=== PATIENT | female | born 1965 | race Caucasian/White ===

== ENCOUNTER → 2020-08-27 | Outpatient (CLI) | payer OTHER ==
--- NOTE | 2020-08-27 16:13 | XR ---
EXAMINATION TYPE: XR lumbosacral spine min 4V DATE OF EXAM: 08/27/2020 COMPARISON: None HISTORY: Low back pain TECHNIQUE: 5 view lumbar spine FINDINGS: Degenerative disc changes present L4-5 and L5-S1. Some posterior disc space narrowing may b e present L3-4. Vertebral body heights are preserved. Alignment is preserved. No spondylolytic defect s are evident. Facets are normal. There are 5 lumbar-type vertebral bodies. The pedicles are intact. IMPRESSION: 1. Mild degenerative disc change L3-4 through L5-S1
== END | disposition home or self-care (01) ==
LOC: RADXRYALE 15:51
PROVIDERS: ATTEND Family Medicine
DX: M47.817 Spondylosis without myelopathy or radiculopathy, lumbosacral region (principal); M47.816 Spondylosis without myelopathy or radiculopathy, lumbar region
CPT/HCPCS: 72110

== ENCOUNTER → 2021-08-11 | Outpatient (CLI) | payer OTHER ==
--- NOTE | 2021-08-12 13:33 | CA ---
Exercise Stress Test Report Name: Elma Ruvalcaba Exam Date: 08/11/2021 09:05 Exam Location: [facility] Ht (in): 62 Wt (lb): 170 BSA: 1.78 Ordering Phys: Ed Boyer DO Referring Phys: tonie,, Technologist: Dayton Lema Age: 56 Gender: F : 1965 Procedure CPT: Indications: z82.49 ICD-10 Codes: Patient History: Hypertension, Diabetes, Family history of heart diaease Medications: Jenuvia, Jardiance, Lorsartan, atorvastatin Meds past 24 hrs: Pretest Chest Pain: STRESS TEST [place] Protocol Exercise Duration (min:sec): 08:[address] Depressions (mm): Angina Score: Narayanan Score: Resting HR (bpm): 67 Peak HR (bpm): 147 Resting BP (mmHg): 154 / 73 Peak BP (mmHg): 219 / 83 MPHR: 163 Target HR: 139 % MPHR: 90 METS: 10.3 Total Dose: Peak Dose: Atropine: Double Product: 17782 BP Response: Stress Termination: fitgue and heart rate acheived Stress Symptoms: No chest pain or symptoms Stress Summary: ECG ANALYSIS Resting ECG: Stress ECG: CONCLUSIONS Excellent exercise tolerance Normal EKG in response to exercise Dr. Brannon Wiggins MD (Electronically Signed) Final Date: 12 Aug 2021 13:33
== END | disposition home or self-care (01) ==
LOC: RADNMMAIN 08:32
PROVIDERS: ATTEND Family Medicine
DX: I73.9 Peripheral vascular disease, unspecified (principal)
CPT/HCPCS: 93017

== ENCOUNTER → 2021-08-11 | Outpatient (CLI) | payer OTHER ==
--- NOTE | 2021-08-11 19:07 | US ---
EXAMINATION TYPE: US carotid duplex BILAT DATE OF EXAM: 08/11/2021 COMPARISON: NONE CLINICAL HISTORY: Hypertension, hyperlipidemia, dizziness, giddiness. Hypertension, hyperlipidemia. D iabetes. EXAM MEASUREMENTS: RIGHT: Peak Systolic Velocity (PSV) cm/sec ----- Right CCA: 95.2 ----- Right ICA: 116.0 ----- Right ECA: 166.8 ICA/CCA ratio: 1.2 RIGHT: End Diastole cm/sec ----- Right CCA: 23.7 ----- Right ICA: 35.7 ----- Right ECA: 17.0 LEFT: Peak Systolic Velocity (PSV) cm/sec ----- Left CCA: 89.7 ----- Left ICA: 93.0 ----- Left ECA: 114.7 ICA/CCA ratio: 1.0 LEFT: End Diastole cm/sec ----- Left CCA: 25.9 ----- Left ICA: 25.9 ----- Left ECA: 16.3 VERTEBRALS (direction of flow): Right Vertebral: Antegrade Left Vertebral: Antegrade Rhythm: Normal Intimal thickening seen bilaterally. Elevated velocity within right ECA. Plaque seen right ICA, right bulb, and left bulb. Grayscale images show mild peripheral plaque bilateral carotid bulb level. IMPRESSION: No hemodynamically significant stenosis in either internal carotid artery. Criteria for Assigning % of Stenosis / Diameter reduction (Estimation based on the indirect measurements of the internal carotid artery velocities (ICA PSV). 1. Normal (no stenosis)=ICA PSV < 125 cm/s: ratio < 2.0: ICA EDV<40 cm/s. 2. Less than 50% stenosis=ICA PSV < 125 cm/s: ratio < 2.0: ICA EDV<40 cm/s. 3. 50 to 69% stenosis=ICA PSV of 125 to 230 cm/s: ration 2.0 ? 4.0: ICA EDV 40-100 cm/s. 4. Greater than 70% stenosis to near occlusion= ICA PSV > 230 cm/s: ratio > 4.0: ICA EDV > 100 cm/s. 5. Near occlusion= ICA PSV velocities may be low or undetectable: variable ratio and ICA EDV. 6. Total occlusion=unable to detect flow.
== END | disposition home or self-care (01) ==
LOC: RADUSWWP 09:43
PROVIDERS: ATTEND Family Medicine
DX: I10 Essential (primary) hypertension (principal); I73.9 Peripheral vascular disease, unspecified; E78.2 Mixed hyperlipidemia; E11.65 Type 2 diabetes mellitus with hyperglycemia
CPT/HCPCS: 93880; 93922

== ENCOUNTER → 2023-03-27 | Outpatient (CLI) | payer BC, OTHER ==
--- NOTE | 2023-03-27 18:14 | MM ---
Reason for Exam: Screening (asymptomatic). Patient History: Menarche at age 9. Patient has no children. Postmenopausal. Risk Values: Maryann 5 year model risk: 1.7%. NCI Lifetime model risk: 9.1%. Tissue Density: There are scattered fibroglandular densities. Findings: Analyzed By CAD. Outer asymmetric density left cc view anterior depth incompletely disperses on 3-D images. This may represent superimposition shadow but further evaluation is recommended. No suspicious calcification or other discrete abnormality is seen. Overall Assessment: Incomplete: need additional imaging evaluation, BI-RAD 0 Management: Special View Mammogram of the left breast. Diagnostic Breast Ultrasound of the left breast. Additional views left breast to include spot 3-D CC, 3-D CC rolled, spot 3-D MLO, and 3-D ML views. Targeted left breast ultrasound if any persisting abnormality. [facility] will attempt to contact patient to return for supplemental views and ultrasound if indicated. Electronically signed and approved by: Joelle Causey M.D. Radiologist
--- NOTE | 2023-03-28 20:17 | BD ---
EXAMINATION TYPE: Axial Bone Density DATE OF EXAM: 03/27/2023 CLINICAL HISTORY: 58 years old Female. ICD-10 CODE: M85.80 OT DISRD OF BONE DENSITY Height: 62 Weight: 168 FRAX RISK QUESTIONS: Secondary Osteoporosis: yes 3. Menopause before 45: yes RISK FACTORS HISTORY OF: Postmenopausal woman: yes at 44 yrs Take estrogen and/or progesterone medications: past for 4 yrs Hyperparathyroidism: no Adrenal Insufficiency: no MEDICATIONS: Additional Medications: bp meds, diabetic meds, jardiance, jenuvia, statin for cholesterol, vit d Additional History: hypertension, diabetic, cholesterol, EXAM MEASUREMENTS: Bone mineral densitometry was performed using the Corthera System. Bone mineral density as measured about the Lumbar spine is: ----- L1-L4(G/cm2): 1.360 T Score Values are as follows: ----- L1: 0.3 ----- L2: 0.0 ----- L3: 1.4 ----- L4: 3.9 ----- L1-L4: 1.5 Z Score Values are as follows: ----- L1: 1.0 ----- L2: 0.8 ----- L3: 2.1 ----- L4: 4.6 ----- L1-L4: 2.3 Bone mineral density is a baseline study today. Bone mineral density about the R hip (g/cm2): 0.940 Bone mineral density about the L hip (g/cm2): 1.015 T Score values are as follows: -----R Neck: -1.6 -----L Neck: -1.2 -----R Total: -0.5 -----L Total: 0.1 Z Score values are as follows: -----R Neck: -0.7 -----L Neck: -0.2 -----R Total: 0.1 -----L Total: 0.7 Bone mineral density baseline study today. FRAX%s: The graph provided illustrates a 7.9% chance for a major osteoporotic fx and a 0.7% chance fo r the hips probability for fx in 10 years time. IMPRESSION: Osteopenia (T Score between -2.5 and -1). There is slightly increased risk of fracture and the patient may be considered for treatment. Re-Screen 2-5 years. NOTE: T-SCORE=SD OF THE YOUNG ADULT MEAN.
== END | disposition home or self-care (01) ==
LOC: RADMAMWWP 08:35
PROVIDERS: ATTEND Family Medicine
DX: Z12.31 Encounter for screening mammogram for malignant neoplasm of breast (principal); M85.89 Other specified disorders of bone density and structure, multiple sites; Z78.0 Asymptomatic menopausal state
CPT/HCPCS: 77063; 77067; 77080

== ENCOUNTER → 2023-04-04 | Outpatient (CLI) | payer BC, OTHER ==
--- NOTE | 2023-04-04 09:02 | MM ---
Reason for Exam: Additional evaluation requested from abnormal screening. Last screening mammogram was performed less than 1 month ago. Patient History: Menarche at age 9. Patient has no children. Postmenopausal. Risk Values: Maryann 5 year model risk: 1.7%. NCI Lifetime model risk: 9.1%. Prior Study Comparison: 03/27/2023 Bilateral MG 3D screening mammo w/cad, [facility]. Tissue Density: Left: There are scattered fibroglandular densities. Findings: Analyzed By CAD. Nodular area of asymmetric density outer aspect of the left breast anterior depth does not persist on additional views. Findings compatible with superimposition shadow. Overall Assessment: Benign, BI-RAD 2 Management: Screening Mammogram of both breasts in 1 year. . Results were given to the patient verbally at the time of exam. Patient should continue monthly self-breast exams. A clinical breast exam by your physician is recommended on an annual basis. This exam should not preclude additional follow-up of suspicious palpable abnormalities. Note on Maryann scores and lifetime risk: 1. A Maryann score greater than 3% is considered moderate risk. If this is the case, consider specialist referral to assess eligibility for a risk reducing agent. 2. If overall lifetime risk for the development of breast cancer is 20% or higher, the patient may qualify for future screening with alternating mammogram and breast MRI. Electronically signed and approved by: Joelle Causey M.D. Radiologist
== END | disposition home or self-care (01) ==
LOC: RADMAMWWP 08:18
PROVIDERS: ATTEND Family Medicine
DX: R92.322 Mammographic fibroglandular density, left breast (principal); Z78.0 Asymptomatic menopausal state
CPT/HCPCS: 77061; 77065

== ENCOUNTER → 2024-03-10 | Outpatient (CLI) | payer BC, OTHER ==
--- NOTE | 2024-03-10 12:25 | CT ---
INDICATION: Patient age:Female; 59 years old; Reason for study: H93.13 tinnitus; PHH. COMPARISON: None TECHNIQUE: Multiple thin slice images were obtained through the orbits. Coronal and sagittal reforma ts were performed. No contrast given. One or more CT dose reduction strategies were utilized during this examination. Total DLP 468 mGycm. FINDINGS: The globes have a normal contour. Bilateral aphakia. Orbital lentz appear intact. The orbital fat is unremarkable. Extraocular muscles are within normal limits. Vascular sclerosis is noted to the internal carotid arteries. The osseous structures are unremarkabl e. Mild mucosal thickening of the right maxillary sinus with irregular opacity within the right maxillar y sinus measuring up to 1.3 cm with central dystrophic calcification (series 6, image 19). Minimal mu cosal thickening of the left maxillary sinus. The remaining paranasal sinuses are clear. Nasal septal deviation to the left. Cerumen identified within the right external auditory canal. The left external auditory canal is rela tively clear. The internal auditory canals appear unremarkable. The middle ears appear unremarkable b ilaterally with Prussak spaces preserved with the ossicles demonstrate symmetric appearance bilateral ly. IMPRESSION: 1. No evidence of orbital irregularity or mass. 2. No CT evidence to explain patient's reported tinnitus. 3. Somewhat irregular opacity within the right maxillary sinus with central calcification. Probably represents sequelae of chronic sinusitis. Consider ENT consultation. [facility], , 03/10/2024 12:23 PM
== END | disposition home or self-care (01) ==
LOC: RADCTMAIN 07:09
PROVIDERS: ATTEND Family Medicine
DX: H93.13 Tinnitus, bilateral (principal)
CPT/HCPCS: 70480

== ENCOUNTER → 2024-09-13 | Outpatient (CLI) | payer BC, OTHER ==
--- NOTE | 2024-09-16 18:09 | MR ---
EXAMINATION TYPE: MR shoulder RT wo con DATE OF EXAM: 09/13/2024 9:01 AM COMPARISON: None. CLINICAL INDICATION: Female, 59 years old with history of M25.511 PAIN IN R SHOULDER S46.001 UNSP INJ MUSC/T, Rt shoulder pain x1 year IV Contrast: cc (None if empty) TECHNIQUE: Multiplanar, multisequence imaging of the right shoulder is performed without contrast. FINDINGS: There is mild osteoarthritis of the AC joint. There is a small to moderate subacromial spur resulting in mild shoulder impingement. There is mild tendinosis of the supraspinatus tendon and possibly a small intrasubstance tear just un gilberto the superior surface. The infraspinatus and subscapularis tendons are intact. Biceps tendon is normal in signal intensity and position within the bicipital groove and the biceps a nchor is intact. There is no labral tear. There is mild subacromial and subdeltoid bursitis. The glenohumeral joint is intact without significant degeneration. IMPRESSION: 1. Mild degeneration of the AC joint and subacromial spur resulting in mild shoulder impingement. 2. Mild tendinosis of the supraspinatus tendon with a possible small intrasubstance tear as described above. 3. No labral tear. 4. Normal biceps tendon. 5. Mild subacromial and subdeltoid bursitis. [facility], , 09/16/2024 6:07 PM
== END | disposition home or self-care (01) ==
LOC: RADMRIMAIN 08:21
PROVIDERS: ATTEND Family Medicine
DX: S46.001A Unspecified injury of muscle(s) and tendon(s) of the rotator cuff of right shoulder, initial encounter (principal); M25.811 Other specified joint disorders, right shoulder; M67.813 Other specified disorders of tendon, right shoulder; M75.51 Bursitis of right shoulder; M19.011 Primary osteoarthritis, right shoulder; X58.XXXA Exposure to other specified factors, initial encounter